=== PATIENT | female | born 1930 | race Caucasian/White ===

== ENCOUNTER 2017-02-01 12:11 | Emergency (ER) | payer MEDICARE ==
[~2017-02-01 12:11] MED LIST: ACET500CAP PO; ATEN25 PO; BETHAN10B PO; BETHAN25B PO; FL250 PO; MACROBID PO; MIRALAXPKT PO; NORV5 PO; PAX20 PO; REM15 PO; ULTRAM50 PO; VOLT75 PO; X25 PO; ZOCOR20 PO
== END 2017-02-01 16:26 | disposition home or self-care (01) ==
LOC: ER 12:11
DX: S32.502A Unspecified fracture of left pubis, initial encounter for closed fracture (principal); Z87.01 Personal history of pneumonia (recurrent); Z88.5 Allergy status to narcotic agent; Z88.8 Allergy status to other drugs, medicaments and biological substances; Z79.899 Other long term (current) drug therapy; W19.XXXA Unspecified fall, initial encounter
CPT/HCPCS: 72170; 73502-LT; 73700-LT; 99284